=== PATIENT | female | born 1995 | race Asian ===

== ENCOUNTER → 2017-02-19 | Outpatient (CLI) | payer BC | LOC: BMCIMAGING 11:46 | PROVIDERS: ATTEND Physician Assistant Medical | DX: Z12.39 Encounter for other screening for malignant neoplasm of breast (principal); N63 Unspecified lump in breast ==

== ENCOUNTER 2017-05-14 10:34 | Emergency (ER) | payer BC ==
[2017-05-14 10:39] VITALS: BP 99/70; PULSE 88; RESP 22; TEMP 98.2; O2SAT 98
--- NOTE | 2017-05-14 11:13 | EDPHY ---
General Narrative: CHIEF COMPLAINT: Multiple complaints on Bactrim HISTORY OF PRESENT ILLNESS: Patient complains of joint aches, headache, nausea, generally not feeling well after starting Bactrim to half days ago. She is being treated for UTI from an urgent care. She says that as soon she start taking medications the symptoms started. They get worse when she takes it improved toward the end of the 12 hour. Prior to taking the next round of medication. Last dose was taken this morning. She has no chest pain. No swelling of the lips or face. No systemic rash. No rash on the palms of the hands and soles of feet. No other associated complaints or modifying factors. Currently on her menstrual cycle. REVIEW OF SYSTEMS: Ten systems reviewed and are negative unless otherwise noted in the HPI PAST MEDICAL HISTORY: Asthma well controlled PAST SURGICAL HISTORY: None SOCIAL HISTORY: Nonsmoker. Currently a [employer] Student FAMILY HISTORY: Noncontributory EXAMINATION General Appearance: Alert, no distress Head: normocephalic, atraumatic Eyes: Pupils equal and round, no conjunctival pallor or injection ENT, Mouth: Mucous membranes moist. Airway patent. No desquamation. No abnormality of the oral mucosa Neck: Normal inspection, supple, non-tender painless range of motion all planes. Respiratory: Lungs are clear to auscultation no wheezing rhonchi or crackles Cardiovascular: Regular rate and rhythm Gastrointestinal: Abdomen is soft and nontender Back: non-tender, no bony abnormalities Neurological: A&O, nonfocal, normal gait Skin: Warm and dry, no rash. No petechiae or purpura. No abnormality of the palms of the hands and soles of the feet Extremities: Nontender, no pedal edema Psychiatric: Mood and affect normal DIFFERENTIAL DIAGNOSES: Including but not limited to drug intolerance, UTI, pyelo, anaphylaxis, drug allergy MDM: 11:11 a.m. Suspected drug intolerance to Bactrim. She has symptoms that are directly related to the medication as they wax and wane dependent on the timing of the medication. She has no evidence of Tomas Giorgio's. She has no anaphylaxis. Her airway is patent. No rash. She would like to be switched to new medication. I do agree with this. I will switch her to Keflex and send a urine culture. I did not send urinalysis or urine micro assured had this performed earlier this week. She is comfortable this plan as is her mother bedside. Discharged home stable condition on Keflex. ED precautions discussed. - History Smoking Status: Never smoked - Objective Vital Signs: Initial Vital Signs Temperature (C) 98.2 F 05/14/17 10:35 Heart Rate 88 05/14/17 10:35 Respiratory Rate 22 H 05/14/17 10:35 Blood Pressure 99/70 L 05/14/17 10:35 O2 Sat (%) 98 05/14/17 10:35 O2 Delivery Mode Room Air Allergies/Adverse Reactions: No Known Allergies Allergy (Unverified 09/30/12 07:20) Home Medications: Medication Instructions Recorded Albuterol 5 mg/ml INH [Proventil] 5 mg IH AD PRN 09/30/12 Albuterol Sulfate [Proventil Hfa] 6.7 gm IH BID 09/30/12 Fluticasone Hfa 110 Mcg [Flovent 1 puffs IH BID 09/30/12 110 MCG Hfa MDI (RX)] Cephalexin [Keflex (*)] 500 mg PO TID #15 cap 05/14/17 Departure - Departure Disposition: Home, Routine, Self-Care Clinical Impression: Adverse drug effect Qualifiers: Encounter type: initial encounter Qualified Code(s): T88.7XXA - Unspecified adverse effect of drug or medicament, initial encounter UTI (urinary tract infection) Qualifiers: Urinary tract infection type: site unspecified Hematuria presence: without hematuria Qualified Code(s): N39.0 - Urinary tract infection, site not specified Condition: Good Instructions: Adverse Drug Reaction (ED) Additional Instructions: 1. Discontinue the Bactrim 2. Keflex as prescribed to completion 3. ER precautions as discussed 4. Follow up with primary care physician Referrals: Margi Martinez MD [Primary Care Provider] - As per Instructions Prescriptions: Cephalexin [Keflex (*)] 500 mg PO TID #15 cap
== END 2017-05-14 11:25 | disposition home or self-care (01) ==
DX: N39.0 Urinary tract infection, site not specified (principal); T37.0X5A Adverse effect of sulfonamides, initial encounter; J45.909 Unspecified asthma, uncomplicated; B96.89 Other specified bacterial agents as the cause of diseases classified elsewhere